=== PATIENT | female | born 1965 | race Two or more races ===

== ENCOUNTER 2017-07-29 14:45 | Emergency (ER) | payer OTHER ==
[~2017-07-29] VITALS: Ht 172.7 cm; Wt 83.9 kg
[2017-07-29 15:14] LABS: Basophils # (auto) 0.1 uL; Eosinophils # (auto) 0.2 uL; Monocytes # (auto) 1.1 uL
[2017-07-29 15:15] LABS: Basophils % (auto) 1.3 % (0.0-2.0); Eosinophils % (auto) 2.2 % (0.0-7.0); Hematocrit 35.5 % (36.0-46.0); Hemoglobin 11.1 g/dL (12.2-16.2); Lymphocytes # (auto) 4.4 uL; Lymphocytes % (auto) 46.6 % (10.0-50.0); Mean Corpuscular Hemoglobin 26.7 pg (28.0-32.0); Mean Corpuscular Hgb Conc. 31.3 g/dL (32.0-36.0); Mean Corpuscular Volume 85.4 fL (80.0-100.0); Mean Platelet Volume 8.4 fL (6.9-10.8); Monocytes % (auto) 11.8 % (0.0-12.0); Neutrophils # (auto) 3.6 uL; Neutrophils % (auto) 38.1 % (37.0-80.0); Nucleated Red Blood Cells % 0.2 %; Platelet Count (auto) 241 10^3/uL (140-450); White Blood Cell 9.4 10^3/uL (4.4-10.8)
[2017-07-29 15:25] LABS: INR 1.13 (0.9-1.15); Prothrombin Time 12.3 sec (9.37-12.3)
[2017-07-29 15:30] LABS: Albumin 3.4 g/dL (3.4-5.0); BUN/Creatinine Ratio 12.1; Calcium 8.6 mg/dL (8.5-10.1); Potassium 4.6 mmol/L (3.5-5.1)
[2017-07-29 15:33] LABS: Bilirubin, Total 0.7 mg/dL (0.2-1.0); Total Protein 7.2 g/dL (6.4-8.2)
[2017-07-29 15:37] LABS: Red Cell Distribution Width 22.3 % (11.8-14.3)
[2017-07-29 16:34] LABS: Anisocytosis Moderate; Platelet Estimate Adequate
[2017-07-29 16:35] LABS: Ovalocytes FEW; Stomatocytes Few; Tear Drop Cells FEW
[2017-07-29] MEDS ORDERED: SODIUM CHLORIDE 0.9% 1,000 ML IV ONE (16:49)
[2017-07-29] MEDS ORDERED: FUROSEMIDE 40 MG/4 ML VIAL IV ONE (17:00)
[2017-07-29] MEDS ORDERED: SPIRONOLACTONE 25 MG TAB PO ONE (17:00)
[2017-07-29] MEDS ORDERED: LOSA25TA8 PO (17:39)
[2017-07-29] MEDS ORDERED: HYD25TP TOP (17:39)
[2017-07-29] MEDS ORDERED: TEMA30CA PO (17:39)
[2017-07-29] MEDS ORDERED: POTA10TA51 PO (17:47)
[2017-07-29] MEDS ORDERED: HYDR-4683 PO (17:47)
[2017-07-29] MEDS ORDERED: BUPR-40 PO (17:47)
[2017-07-29] MEDS ORDERED: FLUO1TAB14 PO (17:47)
[2017-07-29] MEDS ORDERED: FER325T PO (17:47)
[2017-07-29] MEDS ORDERED: PANT40TA2 PO (17:47)
[2017-07-29] MEDS ORDERED: TOCI80IN IV (17:47)
[2017-07-29] MEDS ORDERED: CARV12.544 PO (17:47)
[2017-07-29] MEDS ORDERED: FURO40TA PO (17:47)
[2017-07-29] MEDS ORDERED: SILD50TA42 PO (17:47)
[2017-07-29 21:07] LABS: Urine Bilirubin Negative (Negative); Urine Blood Negative /uL (Negative); Urine Color Colorless (Yellow); Urine Glucose Normal (Normal); Urine Ketone Negative (Negative); Urine Nitrite Negative (Negative); Urine RBC <1 /hpf (0 - 4); Urine Squamous Epithelial Cell FEW /hpf (<5); Urine Urobilinogen Normal (Negative)
[2017-07-29 22:13] LABS: B-Type Natriuretic Peptide 2544.83 pg/mL (0-100)
[2017-07-29 22:17] LABS: Temperature: 23.1 C (20.0-25.0)
[2017-07-30] MEDS: cloNIDine HCL 0.1 MG TAB PO ONE ×2 (01:14→01:21)
[2017-07-30] MEDS ORDERED: METOPROLOL TARTRATE 25 MG TAB PO ONE (02:15)
[2017-07-30 03:36] VITALS: BP 153/95
== END 2017-07-30 04:00 | disposition short-term general hospital (02) ==
LOC: ER 14:45 → EDBD 14:45 → ER 07-30 04:00
DX: I50.9 Heart failure, unspecified (principal); R06.9 Unspecified abnormalities of breathing; R79.89 Other specified abnormal findings of blood chemistry; D64.9 Anemia, unspecified; K21.9 Gastro-esophageal reflux disease without esophagitis; Z79.899 Other long term (current) drug therapy
CPT/HCPCS: 36415; 71020; 80053; 81001; 83735; 83880; 84443; 84484; 85025; 85610; 93005; 94761; 96361; 96374; 99285; J1940; J7030